=== PATIENT | male | born 2000 | race Hispanic/Latino ===

== ENCOUNTER 2022-06-23 12:21 | Emergency (ER) | payer SELFPAY ==
[2022-06-23] MEDS ORDERED: Dexamethasone 10 MG/ML VIAL ONE (13:19)
== END 2022-06-23 13:18 | disposition home or self-care (01) ==
LOC: CSHERS 12:21
DX: J02.9 Acute pharyngitis, unspecified (principal)
CPT/HCPCS: 99282; J1100